=== PATIENT | female | born 1975 | race Caucasian/White ===

== ENCOUNTER 2023-08-19 14:14 | Outpatient (CLI) | payer BC | END 2023-08-19 14:15 | disposition home or self-care (01) | LOC: CSHMRI 14:14 | PROVIDERS: ATTEND Nurse Practitioner Family | DX: M54.31 Sciatica, right side (principal); M47.814 Spondylosis without myelopathy or radiculopathy, thoracic region; M51.34 Other intervertebral disc degeneration, thoracic region; M47.815 Spondylosis without myelopathy or radiculopathy, thoracolumbar region | CPT/HCPCS: 72146; 72148 ==